=== PATIENT | female | born 1970 | race Hispanic/Latino ===

== ENCOUNTER 2016-12-05 19:10 | Emergency (ER) | payer OTHER ==
[~2016-12-05] VITALS: Ht 162.6 cm; Wt 84.8 kg
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
[2016-12-05] MEDS ORDERED: IRON325 M3 PO (19:58)
[2016-12-05] MEDS ORDERED: PANTOPRAZOLE SO40 M1 PO (19:58)
--- NOTE | 2016-12-05 20:29 | RADIOLOGY REPORT ---
EXAMINATION: XR SHOULDER, RIGHT CLINICAL INFORMATION: Fall. Pain. COMPARISON: None TECHNIQUE: Three views of the right shoulder. FINDINGS: No fracture or dislocation. The humeral head is well aligned with the glenoid. No significant glenohumeral cartilage space narrowing. No widening of the acromioclavicular joint. Mild hypertrophic changes at the right AC joint. IMPRESSION: No acute osseous abnormalities.
[2016-12-05 20:40] VITALS: BP 140/78
== END 2016-12-05 20:42 ==
LOC: ERH 19:10
DX: S46.901A Unspecified injury of unspecified muscle, fascia and tendon at shoulder and upper arm level, right arm, initial encounter (principal); X58.XXXA Exposure to other specified factors, initial encounter
CPT/HCPCS: 73030-RT